=== PATIENT | male | born 1965 | race Caucasian/White ===

== ENCOUNTER 2021-05-04 19:09 | Emergency (ER) | payer OTHER ==
[~2021-05-04] VITALS: Ht 170.2 cm; Wt 69.2 kg
[2021-05-04 21:03] VITALS: BP 132/87
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
[2021-05-04] MEDS ORDERED: DIPH,PERTUSS(ACELL),TET VAC/PF 0.5 ML SYRINGE. VAX IM ONE (21:30)
[2021-05-04] MEDS ORDERED: BACITRACIN ZINC TOPICAL OINT PACKET. TP ONE (21:30)
[2021-05-04] MEDS ORDERED: LIDOCAINE 2% 20 ML VIAL. IJ ONE (21:30)
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
== END 2021-05-04 22:40 | disposition home or self-care (01) ==
LOC: ER 19:09
DX: S01.81XA Laceration without foreign body of other part of head, initial encounter (principal); M54.2 Cervicalgia; W01.0XXA Fall on same level from slipping, tripping and stumbling without subsequent striking against object, initial encounter; Y93.89 Activity, other specified; Y92.89 Other specified places as the place of occurrence of the external cause; Y99.8 Other external cause status
CPT/HCPCS: 12013; 70450; 70486; 72125; 90471; 90715; 99285

== ENCOUNTER → 2021-06-05 | Outpatient (CLI) | payer OTHER ==
--- NOTE | 2021-06-05 12:51 | RAD ---
EXAM: Carotid Doppler sonogram. HISTORY: Syncope. Hypotension. Atherosclerosis. TECHNIQUE: [place] scale and color Doppler sonographic evaluation of the neck with spectral waveform leatha lysis was performed and static images are submitted for review. FINDINGS:. There is mild atherosclerotic plaque within the right carotid bulb. The peak systolic [place] within the right common carotid artery is 122 cm/sec. The peak systolic velocity within the righ t internal carotid artery is 130 cm/sec and the end diastolic velocity within the right internal [place] artery is 45 cm/sec. The right ICA/CCA ratio is 1.3. The peak systolic velocity within the left common carotid artery is 160 cm/sec. The peak systolic dwight ocity within the left internal carotid artery is 104 cm/sec and the end diastolic velocity within the left internal carotid artery is 23 cm/sec. The left ICA/CCA ratio is 1.1. There is normal antegrade flow within both vertebral arteries. IMPRESSION: Doppler findings suggesting 50-69 percent stenosis involving the right ICA and less than 50 percent stenosis involving the distal ICA. PQRS Compliance Statement - Stenosis calculations for CT, MR and conventional angiography are based u marcella measurement of the distal ICA diameter in accordance with the NASCET methodology. Stenosis calcu lations for carotid ultrasound studies are derived from validated velocity criteria which are known t o correlate with the NASCET methodology. Electronically signed by: Leticia Danielle MD (06/05/2021 12:48 PM) [id number]
== END ==
LOC: US 11:07
PROVIDERS: ATTEND Family Medicine
DX: I65.21 Occlusion and stenosis of right carotid artery (principal); I95.1 Orthostatic hypotension
CPT/HCPCS: 93880